=== PATIENT | female | born 1960 | race Two or more races ===

== ENCOUNTER 2016-12-14 18:37 | Emergency (ER) | payer SELFPAY ==
[~2016-12-14] VITALS: Ht 185 cm; Wt 90.0 kg
[2016-12-14] MEDS ORDERED: AMOXICILLIN875 M1 PO (19:20)
== END 2016-12-14 19:24 ==
LOC: EDMED 18:37
DX: T70.29XA Other effects of high altitude, initial encounter (principal); H66.91 Otitis media, unspecified, right ear; E78.5 Hyperlipidemia, unspecified; X58.XXXA Exposure to other specified factors, initial encounter